=== PATIENT | female | born 1975 | race Caucasian/White ===

== ENCOUNTER → 2016-07-28 | Outpatient (CLI) | payer OTHER | LOC: WI 08:34 | PROVIDERS: ATTEND Nurse Practitioner Primary Care | DX: N63 Unspecified lump in breast (principal); N64.4 Mastodynia | CPT/HCPCS: 76642; G0279; G0204; 77062; 77066 ==

== ENCOUNTER → 2016-07-28 | Outpatient (CLI) | payer OTHER ==
[2016-08-01 05:39] LABS: QUANTIFERON TB NIL VALUE 0.05 IU/mL (.)
== END ==
LOC: RAD 10:53
PROVIDERS: ATTEND Nurse Practitioner Primary Care
DX: R76.11 Nonspecific reaction to tuberculin skin test without active tuberculosis (principal); Z20.1 Contact with and (suspected) exposure to tuberculosis
CPT/HCPCS: 36415; 71020; 86480

== ENCOUNTER → 2017-06-07 | Outpatient (CLI) | payer BC, OTHER ==
--- NOTE | 2017-06-07 17:45 | ST Modified Barium Swallow ---
Recommendation - Recommendations Recommendations: Functional swallow skills seen, no further intervention indicated. Medical Diagnoses - Medical Diagnoses Medical Diagnosis Description & ICD-10 Code(s): dysphagia R13.10 Other Medical Diagnoses/Co-Morbidities: Patient reports enlarged thyroid ST Modified Barium Swallow - General Date: 06/07/17 Referring Physician: Jo-Ann Angeles CNP Risks/Precautions: None - History History obtained from: Patient -: Medical - Patient states she notices globus sensation with foods, occasional coughing with liquids for approximately 1 year. States that recent ultrasound did reveal enlargment of thyroid. Also reports multiple jaw surgeries, but with no impact on swallowing. Medications: patient unable to give complete medication list Allergies: seafood - Functional Status Prior Functional Status: INDEPENDENT: feeding - independent - Subjective Patient/caregiver goal(s): r/o struct. abnormality Cognitive-Linguistic Function: WNL Speech Intelligibility: WNL Current Nutritional Means: PO Current PO diet: Regular Current symptoms: c/o Globus sensation Pain: Patient reports, 0/5 - Objective Assessment: Upright, Left Lateral - Food Trials Used Food trials used: Thin liquids, Pureed, Regular The patient: Was Able to Self Feed - Oral-Motor Skills Dentition: Full Laryngeal Function: Volitional Cough, Volitional Swallow - Assessment Oral prep: Normal Labial closure: Adequate Leakage: None Mastication: Adequate Lingual Movement: Normal Oral stage: Normal for this Procedure - Pharyngeal Stage Decreased laryngeal elevation: No Reduced Velopharyngeal Closure: no Reduced pressure generation: No reduced tongue-based retraction: No Pre-swallow pooling in valleculae: None Pre-Swallow pooling in pyriforms: None Reduced Thyro-Hyoid approximation: No Reduced epiglottic excursion: No Reduced pharyngeal peristalsis/contraction: No Post-swallow residulas vallecular: Mild - on pudding trial only Post-Swallow residuals in pyriforms: None - Fall Risk Assessment Medications/Conditions that increase fall risks include: Antidepressants, sedatives, anti-arrhythmic, diuretic, benzodiazipenes, neuroleptics. BP regulation problems, cardiac problems, balance or gait deficits, neurological problems. Is patient considered at risk for falls: no Fall Risk Actions Taken: No action needed - Behavioral Observations During evaluation process patient: was pleasant, was cooperative, able to answer questions - Treatment / Educational Needs: Treatment/Education Needs: Treatment consisted of patient education on the role of the Speech Pathologist. Patient's plan of care and golas were communicated as well as scheduling and attendance policies. Recommendations for initial home program were shared. Patient demonstrated understanding and verbalized agreement. - Impression/Summary Laryngeal Penetration: No Tracheal Aspiration: no Patient presents with: Normal swallow at eval Risk of Aspiration: Minimal Risk of nutritional compromise: None - Recommendations Solid diet recommendations: Regular Liquid Diet Modification: Thin Dysphagia therapy with SENIOR CARE SPECIALIST: no Recommended techniques: Fully Upright During Meal, Small Bites and Sips - Plan of Care Patient to follow-up with referring physician: Yes Strategies to optimize patient understanding include:: ongoing assessment of educational needs, implementation of educational strategies, and re-education. - - -: Thank you for the opportunity to work with this patient and his/her family. Should you have any questions about this patient's plan or progress, I can be reached at [phone]. Charge G Code? - - -: No
--- NOTE | 2017-06-08 17:40 | RADIOLOGY REPORT (SQ) ---
EXAM DESCRIPTION: KHOIIE SWALLOW COMPLETED DATE/TIME: 06/07/2017 8:29 am REASON FOR STUDY: DYSPHAGIA R10.13 EPIGASTRIC PAIN COMPARISON: None. TECHNIQUE: Videofluoroscopic swallowing examination was performed in conjunction with speech patholo gy. Videofluoroscopic imaging was obtained and reviewed and these are the findings: RADIATION DOSE: Fluoro time 1.31 minutes 1 images saved to PACS. LIMITATIONS: None FINDINGS: The patient was brought into the fluoro room and placed upright on a modified barium swall ow chair. The patient was then given multiple consistencies mixed with barium to swallow under live fluoroscopic video guidance. According to the Speech Pathologist there was no penetration or aspirat ion. Please refer to the speech pathology report for further details. IMPRESSION: NO EVIDENCE OF PENETRATION OR ASPIRATIONPLEASE SEE SPEECH PATHOLOGIST REPORT FOR OTHER F INDINGS AND RECOMMENDATIONS. COMMENT: None Quality ID [id number]: Final reports for procedures using fluoroscopy that document radiation exposure curtis cinthya, or exposure time and number of fluorographic images (if radiation exposure indices are not avail able) TECHNICAL DOCUMENTATION: JOB ID: [id number]- All Rights Reserved
== END ==
LOC: RAD 08:19
PROVIDERS: ATTEND Nurse Practitioner Primary Care
DX: R13.10 Dysphagia, unspecified (principal)
CPT/HCPCS: 74230

== ENCOUNTER → 2017-09-10 | Outpatient (CLI) | payer BC, OTHER ==
[2017-09-10 19:09] LABS: FREE T3 3.81 pg/mL (2.77-5.27); FREE T4 (FREE THYROXINE) 0.71 ng/dL (0.78-2.19)
[2017-09-10 19:22] LABS: THYROID STIMULATING HORMONE 0.81 uIU/mL (0.47-4.68)
[2017-09-12 08:50] LABS: THYROID PEROXIDASE (TPO) AB 15 IU/mL (0-34)
[2017-09-12 13:46] LABS: THYROGLOBULIN AB <1.0 IU/mL (0.0-0.9)
== END ==
LOC: OD 17:36
PROVIDERS: ATTEND Surgery
DX: E04.2 Nontoxic multinodular goiter (principal)
CPT/HCPCS: 36415; 84439; 84443; 84481; 86376; 86800

== ENCOUNTER 2018-05-23 15:08 | Emergency (ER) | payer BC, OTHER ==
--- NOTE | 2018-05-23 16:18 | ER Document Report ---
ED GI/ - General Chief Complaint: Rib Pain Stated Complaint: RIB PAIN Time Seen by Provider: 05/23/18 16:01 Mode of Arrival: Ambulatory Information source: Patient Notes: 42-year-old female presents to ED for complaint of left rib abdomen and flank pain since Sunday. She states she was nauseated and vomiting this morning but has not vomited this afternoon. She states she was also seen and treated for bronchitis just before Thanks[place] with antibiotics and has been fine until Sunday. Patient has a history of colon cancer with a hemicolectomy 8 years ago. She states she has been getting her colonoscopies yearly and her last one was a year ago and told that she did not need another one until next year. Patient is also had a history of gallbladder removal of appendectomy and a hysterectomy. She has a history of endometriosis with a tummy tuck. She is also had her tonsils out and her wisdom teeth. She does have a history of MRSA. Patient is alert and oriented respirations regular and unlabored speaking in full sentences is very guarding to the left chest abdomen flank area. Denies any history of kidney stones. TRAVEL OUTSIDE OF THE [place] IN LAST 30 DAYS: No - HPI Patient complains to provider of: Abdominal pain, Flank pain, Other - Abdomen flank and rib pain on the left Onset: Other Timing/Duration: Intermittent Quality of pain: Sharp Severity at maximum: Moderate Severity in ED: Moderate Pain Level: 4 Location: LUQ, Left flank, Other - left back andf ribs Vaginal bleeding (Compared to normal period): None Associated symptoms: Radiates to back - left ribs upper abdomen Exacerbated by: Denies Relieved by: Denies Similar symptoms previously: Yes Recently seen / treated by doctor: No - Related Data Allergies/Adverse Reactions: latex [Latex] Allergy (Severe, Verified 05/23/18 15:09) instant yeast infection(w/vag exam),red & raw skin (on hands morphine [Morphine] Adverse Reaction (Severe, Verified 05/23/18 15:09) Vomiting seafood Allergy (Intermediate, Uncoded 05/23/18 15:09) N&V, diarrhea, hives (Betadine ok) tylenol #3 Adverse Reaction (Severe, Uncoded 05/23/18 15:09) VOMITING Past Medical History - General Information source: Patient - Social History Smoking Status: Current Every Day Smoker Cigarette use (# per day): Yes - ppd Smoking Education Provided: Yes - 4 min Frequency of alcohol use: Rare Drug Abuse: None Occupation: front office Lives with: Family Family History: Reviewed & Not Pertinent Patient has suicidal ideation: No Patient has homicidal ideation: No - Past Medical History Cardiac Medical History: Reports: None Pulmonary Medical History: Reports: Hx Bronchitis EENT Medical History: Reports: None Neurological Medical History: Reports: None Endocrine Medical History: Reports: None Renal/ Medical History: Reports: Other - endometriosis Malignancy Medical History: Reports: Hx Colorectal Cancer GI Medical History: Reports: Hx Colonoscopy, Hx Endoscopy Musculoskeletal Medical History: Reports Hx Musculoskeletal Trauma Skin Medical History: Reports Hx MRSA Psychiatric Medical History: Reports: None Traumatic Medical History: Reports: Hx Fractures - fracture Infectious Medical History: Reports: None Past Surgical History: Reports: Hx Abdominal Surgery - tummy tuck, Hx Appendectomy, Hx Bowel Surgery, Hx Cholecystectomy, Hx Hysterectomy, Hx Oral Surgery, Hx Tonsillectomy - Immunizations Hx Diphtheria, Pertussis, Tetanus Vaccination: Yes Review of Systems - Review of Systems Constitutional: No symptoms reported EENT: No symptoms reported Cardiovascular: Other - left ribs Respiratory: Hurts to breathe Gastrointestinal: Abdominal pain - left upper abdomen Genitourinary: Flank pain - left flank Female Genitourinary: No symptoms reported Musculoskeletal: No symptoms reported Skin: No symptoms reported Hematologic/Lymphatic: No symptoms reported Neurological/Psychological: No symptoms reported -: Yes All other systems reviewed and negative Physical Exam - Vital signs Vitals: Temp Pulse Resp BP Pulse Ox 98.2 F 98 14 105/67 97 05/23/18 15:09 05/23/18 15:09 05/23/18 15:09 05/23/18 15:09 05/23/18 15:09 Interpretation: Normal - General General appearance: Appears well, Alert - HEENT Head: Normocephalic, Atraumatic Eyes: Normal Pupils: PERRL - Respiratory Respiratory status: No respiratory distress Chest status: Pain on movement, Pain with deep breathing, Other - left ribs Breath sounds: Normal Chest palpation: Normal - Cardiovascular Rhythm: Regular Heart sounds: Normal auscultation Murmur: No - Abdominal Inspection: Normal Distension: No distension Bowel sounds: Normal Tenderness: Tender - left upper abdomen Organomegaly: No organomegaly - Back Back: Normal, Tender - left upper back - Extremities General upper extremity: Normal inspection, Nontender, Normal color, Normal ROM , Normal temperature General lower extremity: Normal inspection, Nontender, Normal color, Normal ROM , Normal temperature, Normal weight bearing. No: Shannon's sign - Neurological Neuro grossly intact: Yes Cognition: Normal Orientation: AAOx4 [place] Coma Scale Eye Opening: Spontaneous [place] Coma Scale Verbal: Oriented Jason Coma Scale Motor: Obeys Commands Jason Coma Scale Total: 15 Speech: Normal Motor strength normal: LUE, RUE, LLE, RLE Sensory: Normal - Psychological Associated symptoms: Normal affect, Normal mood - Skin Skin Temperature: Warm Skin Moisture: Dry Skin Color: Normal Course - Re-evaluation Re-evalutation: 05/24/18 01:35 4 patient was discharged reviewed all labs and CTs with . Written reports of labs and CTs given the patient to follow-up with her primary doctor. There was no acute findings on the CT or labs. Patient was discharged home to follow-up with her primary doctor. - Vital Signs Vital signs: Temp Pulse Resp BP Pulse Ox 98.1 F 78 16 113/55 L 97 05/23/18 20:16 05/23/18 20:16 05/23/18 20:16 05/23/18 20:16 05/23/18 20:16 - Laboratory Result Diagrams: 05/23/18 16:30 05/23/18 16:30 Laboratory results interpreted by me: 05/23/18 05/23/18 05/23/18 16:30 16:30 16:47 Hgb 16.0 H Glucose 71 L Urine Ketones TRACE H Urine Blood SMALL H Urine Urobilinogen 2.0 H Urine Ascorbic Acid 20 H - Diagnostic Test Radiology reviewed: Image reviewed, Reports reviewed Discharge - Discharge Clinical Impression: Left flank pain Condition: Stable Disposition: HOME, SELF-CARE Instructions: Family Physicians / Practices Additional Instructions: Flank Pain We weren't able to prove an exact cause for your flank pain. Pain in the flank can be caused by a muscle strain or spasm. Sometimes a kidney stone causes pain, but can't be found on our tests. Infection in the kidney should be evident on a urine test. Early shingles can occasionally cause flank pain, without the rash that proves the diagnosis. On rare occasions, disease of the pancreas, aorta, spleen, or colon can create pain in the flank. At this time, there's no evidence of a dangerous condition, and it seems safe for you to be at home. If the pain goes away and does not come back, no further testing will be needed. If pain persists, or becomes more severe, we may need to repeat some tests or order additional new testing. Blood in the urine, urgency to urinate frequently, and pain that radiates to the groin can indicate a kidney stone. Fever may mean that the pain is due to infection, either of the kidney or the colon (diverticulitis). If your pain is early shingles, you should develop an eruption of blisters in the painful area within a few days. Call the doctor or return if you have pain that is spreading or becoming more severe, pain that does not resolve with time, fever, or any other new symptoms. You were seen today for left flank/ribs/ left abdominal pain. I have completed blood work urine CT of the abdomen pelvis and chest. There are no acute findings on any of this workup. I have sent copies of your labs and CAT scans home with you. Due to your history we would do in the CAT scans and blood work to ensure this was musculoskeletal. Toradol Injection You have been given an injection of ketorolac tromethamine (Toradol). This is an excellent, safe drug for pain control. It also has potent antiinflammatory action. You should have significant pain relief within about one hour. Toradol is not addicting and is non-sedating. It does not interfere with driving or work. Call or return if you develop itching, hives, shortness of breath, or rash. Muscle Relaxers Muscle relaxing medications are usually prescribed for acute muscle spasm or injury to the neck and back. They are often combined with antiinflammatory pain medication for increased relief. You may stop the muscle relaxer when the pain and stiffness have improved. Start the medication again if spasms recur. Muscle relaxers may cause drowsiness, especially with the first dose. Do not operate machinery or drive while under the effects of the medication. Most muscle relaxers last up to 24 hours. Do not combine the medication with alcohol. FOLLOW-UP CARE: If you have been referred to a physician for follow-up care, call the physician s office for an appointment as you were instructed or within the next two days. If you experience worsening or a significant change in your symptoms, notify the physician immediately or return to the Emergency Department at any time for re-evaluation. Prescriptions: Methocarbamol [Robaxin 500 mg Tablet] 500 mg PO BID PRN #14 tablet PRN Reason: For Pain Scale 3-4 Forms: Smoking Cessation Education Referrals: CHEO HERNANDEZ MD [ACTIVE STAFF] - Follow up as needed
[2018-05-23] MEDS ORDERED: RINGERS SOLUTION,LACTATED 1,000 ML IV ONE (16:19)
[2018-05-23] MEDS ORDERED: NORMAL SALINE 1000 ML 1,000 ML IV ONE (16:19)
[2018-05-23] MEDS ORDERED: KETOROLAC TROMETHAMINE INJ/PF 30 MG/1 ML SDV IV ONE (16:20)
[2018-05-23 16:56] LABS: ABSOLUTE BASOPHILS # (AUTO) 0.1 10^3/uL (0.0-0.2); ABSOLUTE EOSINOPHILS # (AUTO) 0.2 10^3/uL (0.0-0.6); ABSOLUTE LYMPHOCYTES (AUTO) 2.7 10^3/uL (0.5-4.7); ABSOLUTE MONOCYTES (AUTO) 0.6 10^3/uL (0.1-1.4); ABSOLUTE NEUT (AUTO) 6.7 10^3/uL (1.7-8.2); BASOPHILS % (AUTO) 1.2 % (0-2); EOSINOPHILS % (AUTO) 1.8 % (0-6); HEMATOCRIT 45.6 % (36.0-47.0); LYMPHOCYTES % (AUTO) 25.7 % (13-45); MEAN CORPUSCULAR HEMOGLOBIN 32.5 pg (27.0-33.4); MEAN CORPUSCULAR HGB CONC 35.1 g/dL (32.0-36.0); MEAN CORPUSCULAR VOLUME 92 fl (80-97); PLATELET COUNT 296 10^3/uL (150-450); RED BLOOD COUNT 4.94 10^6/uL (3.72-5.28); RED CELL DISTRIBUTION WIDTH 12.7 % (11.5-14.0); SEGMENTED NEUTROPHILS % (AUTO) 65.3 % (42-78); TOTAL CELLS COUNTED % (AUTO) 100 %; WHITE BLOOD COUNT 10.3 10^3/uL (4.0-10.5)
[2018-05-23 17:08] LABS: ALANINE AMINOTRANSFERASE 22 U/L (9-52); ALBUMIN 4.4 g/dL (3.5-5.0); ALKALINE PHOSPHATASE 60 U/L (38-126); ANION GAP 10 (5-19); ASPARTATE AMINO TRANSFERASE 19 U/L (14-36); BILIRUBIN,DIRECT 0.3 mg/dL (0.0-0.4); BILIRUBIN,TOTAL 0.4 mg/dL (0.2-1.3); BLOOD UREA NITROGEN 10 mg/dL (7-20); CARBON DIOXIDE 29 mmol/L (22-30); CHLORIDE 104 mmol/L (98-107); GLUCOSE 71 mg/dL (75-110); POTASSIUM 3.7 mmol/L (3.6-5.0); SODIUM 143.3 mmol/L (137-145)
[2018-05-23 17:08] LABS: APPEARANCE,URINE SLIGHTLY-CLOUDY; BILIRUBIN,URINE NEGATIVE (NEGATIVE); COLOR,URINE YELLOW; GLUCOSE, URINE NEGATIVE (NEGATIVE); KETONES,URINE TRACE mg/dL (NEGATIVE); LEUKOCYTE ESTERASE,URINE NEGATIVE (NEGATIVE); NITRITE,URINE NEGATIVE (NEGATIVE); PROTEIN,URINE NEGATIVE (NEGATIVE)
--- NOTE | 2018-05-23 19:36 | RADIOLOGY REPORT (SQ) ---
EXAM DESCRIPTION: CT CHEST WITH COMPLETED DATE/TIME: 05/23/2018 7:19 pm REASON FOR STUDY: left flank/rib and abdominal pain COMPARISON: None. TECHNIQUE: CT scan of the chest performed using helical scanning technique with dynamic intravenous contrast injection. Images reviewed with lung, soft tissue and bone windows. Reconstructed coronal and sagittal MPR and MIP images reviewed. All images stored on PACS. All CT scanners at this facility use dose modulation, iterative reconstruction, and/or weight based d osing when appropriate to reduce radiation dose to as low as reasonably achievable (ALARA). [facility]: Dose Right [facility]: CareDose [facility]: Dose Right [facility]: Teradose 4D [facility]: Embrace CONTRAST TYPE AND DOSE: 95 mL Omnipaque 350- low osmolar. RENAL FUNCTION: None required. The patient is less than 50 years old. RADIATION DOSE: CT Rad equipment meets quality standard of care and radiation dose reduction techniq ues were employed. CTDIvol: 7.6 - 12.1 mGy. DLP: 1643 mGy-cm. . LIMITATIONS: None. FINDINGS: LUNGS AND PLEURA: No opacities, nodules, masses. No pneumothorax. No effusions. HILAR AND MEDIASTINAL STRUCTURES: No identified masses or abnormal nodes. HEART AND VASCULAR STRUCTURES: No aneurysm or dissection. No central pulmonary emboli. No pericardi al effusion. HARDWARE: None in the chest. UPPER ABDOMEN: No significant findings. Limited exam. THYROID AND OTHER SOFT TISSUES: No masses. No adenopathy. BONES: No significant finding. OTHER: No other significant finding. IMPRESSION: NORMAL CT OF THE CHEST WITH IV CONTRAST. TECHNICAL DOCUMENTATION: JOB ID: [id number] Quality ID # [id number]: Final reports with documentation of one or more dose reduction techniques (e.g., Au tomated exposure control, adjustment of the mA and/or kV according to patient size, use of iterative reconstruction technique) 2010 [email or web address]- All Rights Reserved Reading location - IP/workstation name: [email or web address]
--- NOTE | 2018-05-23 19:43 | RADIOLOGY REPORT (SQ) ---
EXAM DESCRIPTION: CT ABD/PELVIS WITH IV ORAL COMPLETED DATE/TIME: 05/23/2018 7:19 pm REASON FOR STUDY: left flank/rib and abdominal pain COMPARISON: 02/03/2018 TECHNIQUE: CT scan of the abdomen and pelvis performed using helical scanning technique with dynamic intravenous contrast injection. Oral contrast. Images reviewed with lung, soft tissue, and bone win dows. Reconstructed coronal and sagittal MPR images reviewed. Delayed images for evaluation of the ur inary system also acquired. All images stored on PACS. All CT scanners at this facility use dose modulation, iterative reconstruction, and/or weight based d osing when appropriate to reduce radiation dose to as low as reasonably achievable (ALARA). [facility]: Dose Right [facility]: CareDose [facility]: Dose Right [facility]: Teradose 4D [facility]: [email or web address] CONTRAST TYPE AND DOSE: contrast/concentration: Isovue 350.00 mg/ml; Total Contrast Delivered: 95.0 ml; Total Saline Delivered: 71.0 ml RENAL FUNCTION: None required. The patient is less than 50 years old. RADIATION DOSE: . LIMITATIONS: None. FINDINGS: LOWER CHEST: No significant findings. No nodules or infiltrates. LIVER: There is a small low-density lesion right lobe of the liver. This may represent a small heman gioma. This is stable. SPLEEN: Normal size. No focal lesions. PANCREAS: No masses. No significant calcifications. No adjacent inflammation or peripancreatic fluid collections. Pancreatic duct not dilated. GALLBLADDER: Surgically absent. ADRENAL GLANDS: No significant masses or asymmetry. RIGHT KIDNEY AND URETER: No solid masses. No significant calcifications. No hydronephrosis or hyd roureter. LEFT KIDNEY AND URETER: No solid masses. No significant calcifications. No hydronephrosis or hydr oureter. AORTA AND VESSELS: No aneurysm. No dissection. Renal arteries, SMA, celiac without stenosis. RETROPERITONEUM: No retroperitoneal adenopathy, hemorrhage or masses. BOWEL AND PERITONEAL CAVITY: No masses or inflammatory changes. No free fluid or peritoneal masses. APPENDIX: Surgically absent. PELVIS: 22 mm left adnexal cyst. ABDOMINAL WALL: No masses. No hernias. BONES: No significant or acute findings. OTHER: No other significant finding. IMPRESSION: 1. Stable small low-density lesion in the right lobe of the liver, likely hemangioma. 2. No acute findings in the abdomen or pelvis. 3. Small left adnexal cyst, almost certainly benign. No follow-up is required for this. TECHNICAL DOCUMENTATION: JOB ID: [id number] Quality ID # [id number]: Final reports with documentation of one or more dose reduction techniques (e.g., Au tomated exposure control, adjustment of the mA and/or kV according to patient size, use of iterative reconstruction technique) 2010 [email or web address]- All Rights Reserved Reading location - IP/workstation name: [email or web address]
[2018-05-23 20:19] VITALS: BP 113/55
[2018-05-23] MEDS ORDERED: METHOCARBAMOL 500 MG TABLET PO ONE (20:30)
== END 2018-05-23 20:35 | disposition home or self-care (01) ==
LOC: ER 15:08
DX: R07.81 Pleurodynia (principal); R10.9 Unspecified abdominal pain; R11.2 Nausea with vomiting, unspecified; F17.210 Nicotine dependence, cigarettes, uncomplicated; Z86.14 Personal history of Methicillin resistant Staphylococcus aureus infection; Z90.49 Acquired absence of other specified parts of digestive tract; Z90.710 Acquired absence of both cervix and uterus; Z91.040 Latex allergy status; Z88.6 Allergy status to analgesic agent; Z91.013 Allergy to seafood
CPT/HCPCS: 99406; 99284; 96361; 96374; 36415; 85025; 80053; 81001; 71260; 74177; J1885; J7030; J7120

== ENCOUNTER 2018-05-24 12:41 | Emergency (ER) | payer BC, OTHER ==
--- NOTE | 2018-05-24 13:56 | ER Document Report ---
ED General - General Mode of Arrival: Ambulatory Information source: Patient TRAVEL OUTSIDE OF THE U.[place]. IN LAST 30 DAYS: No <MARCO FRANCO - Last Filed: 05/24/18 14:07> <BILL NUÑEZ - Last Filed: 05/24/18 14:58> - General Chief Complaint: Chest Wall Pain Stated Complaint: FLANK PAIN Time Seen by Provider: 05/24/18 13:10 Notes: Patient is a 42 year old female presenting to the emergency department complaining of left sided rib pain onset a few days ago. Patient states she presented to the emergency department yesterday complaining of a similar pain and had a unremarkable CT scan and xray of the chest, abdomen and pelvis performed. Patient states she went to her PCP this morning for follow up and had another xray performed which showed "free air below the diaphragm on the left" and that she needed to report back to the emergency department. Patient states the pain has worsened today and states the pain is exacerbated with deep breathing and movement. Patient states that she has been coughing copiously recently and further states she was recently diagnosed with bronchitis approximately 3 weeks ago. Patient states she finished the medications that was prescribed to her. (MARCO FRANCO) I did call the radiologist, Dr. Santiago to discuss the films that were done in his office. He stated that she had multiple small bowel air-fluid levels noted. She had what appeared to be air under the left diaphragm, but reports that could have been displaced: Given the appearance of free air. He was concerned because of her left-sided pleuritic chest pain. The patient reports the general area of her pain which includes the inferior anterolateral and lateral ribs and flank on the left is all very tender to palpate, and hurts to breathe, trunk twist and bend. (BILL NUÑEZ) - Related Data Allergies/Adverse Reactions: latex [Latex] Allergy (Severe, Verified 05/24/18 12:43) instant yeast infection(w/vag exam),red & raw skin (on hands morphine [Morphine] Adverse Reaction (Severe, Verified 05/24/18 12:43) Vomiting seafood Allergy (Intermediate, Uncoded 05/24/18 12:43) N&V, diarrhea, hives (Betadine ok) tylenol #3 Adverse Reaction (Severe, Uncoded 05/24/18 12:43) VOMITING Past Medical History - General Information source: Patient - Social History Smoking Status: Current Every Day Smoker Cigarette use (# per day): Yes - 1 PPD Chew tobacco use (# tins/day): No Frequency of alcohol use: None Family History: Reviewed & Not Pertinent Patient has suicidal ideation: No Patient has homicidal ideation: No - Past Medical History Cardiac Medical History: Pulmonary Medical History: Reports: Hx Bronchitis Malignancy Medical History: Reports: Hx Colorectal Cancer GI Medical History: Reports: Hx Colonoscopy, Hx Endoscopy Musculoskeletal Medical History: Reports Hx Musculoskeletal Trauma Skin Medical History: Reports Hx MRSA Traumatic Medical History: Reports: Hx Fractures - fracture Infectious Medical History: Denies: Hx Hepatitis Past Surgical History: Reports: Hx Abdominal Surgery - tummy tuck, Hx Appendectomy, Hx Bowel Surgery, Hx Cholecystectomy, Hx Hysterectomy, Hx Oral Surgery, Hx Tonsillectomy. Denies: Hx Mastectomy, Hx Open Heart Surgery, Hx Pacemaker - Immunizations Hx Diphtheria, Pertussis, Tetanus Vaccination: Yes <MARCO FRANCO - Last Filed: 05/24/18 14:07> Review of Systems - Review of Systems Constitutional: No symptoms reported EENT: No symptoms reported Cardiovascular: No symptoms reported Respiratory: See HPI, Cough Gastrointestinal: No symptoms reported Genitourinary: No symptoms reported Female Genitourinary: No symptoms reported Musculoskeletal: See HPI Skin: No symptoms reported Hematologic/Lymphatic: No symptoms reported Neurological/Psychological: No symptoms reported -: Yes All other systems reviewed and negative <MARCO FRANCO - Last Filed: 05/24/18 14:07> Physical Exam <MARCO FRANCO - Last Filed: 05/24/18 14:07> <BILL NUÑEZ - Last Filed: 05/24/18 14:58> - Vital signs Vitals: Temp Pulse Resp BP Pulse Ox 97.9 F 82 18 123/65 98 05/24/18 12:45 05/24/18 12:45 05/24/18 12:45 05/24/18 12:45 05/24/18 12:45 - Notes Notes: GENERAL: Alert, interacts well. No acute distress. HEAD: Normocephalic, atraumatic. EYES: Pupils equal, round, and reactive to light. Extraocular movements intact. ENT: Oral mucosa moist, tongue midline. NECK: Full range of motion. Supple. Trachea midline. LUNGS: Clear to auscultation bilaterally, no wheezes, rales, or rhonchi. No respiratory distress. Tender to palpation to the muscles of the left ribs which reproduces chief complaint. HEART: Regular rate and rhythm. No murmurs, gallops, or rubs. ABDOMEN: Soft, morbidly obese, non-tender. Non-distended. Bowel sounds present in all 4 quadrants. EXTREMITIES: Moves all 4 extremities spontaneously. NEUROLOGICAL: Alert and oriented x3. Normal speech. PSYCH: Normal affect, normal mood. SKIN: Warm, dry, normal turgor. No rashes or lesions noted. (MARCO FRANCO) Course - Diagnostic Test Radiology reviewed: Image reviewed, Reports reviewed - Acute abdominal series does show a few small bowel air-fluid levels. There is no free air under the diaphragm on either side. <BILL NUÑEZ - Last Filed: 05/24/18 14:58> - Vital Signs Vital signs: Temp Pulse Resp BP Pulse Ox 97.9 F 82 19 126/86 H 98 05/24/18 12:45 05/24/18 12:45 05/24/18 14:01 05/24/18 14:01 05/24/18 14:01 Discharge <MARCO FRANCO - Last Filed: 05/24/18 14:07> <BILL NUÑEZ - Last Filed: 05/24/18 14:58> - Discharge Clinical Impression: Rib pain, Flank pain Muscle strain of chest wall Qualifiers: Encounter type: initial encounter Qualified Code(s): S29.011A - Strain of muscle and tendon of front wall of thorax, initial encounter Condition: Stable Disposition: HOME, SELF-CARE Additional Instructions: Your x-rays done here today do not show any free air under the diaphragm. In discussion with the radiologist at [facility], he was unsure if it was free air or displaced large bowel gas causing the appearance of free air. The pain in your ribs and flank area seem to be related to all the coughing you had done recently causing a strain of your ribs. Try to limit activity as much as possible. Take medication as prescribed to suppress cough if needed or for pain control. Add Robitussin-DM to control cough if needed. Drink plenty of fluids. Continue the muscle relaxers prescribed last night, if they seem to be helping. Try to reduce smoking as much as possible. Follow-up with your primary care provider Sunday for recheck if not improving. RETURN TO THE EMERGENCY ROOM IF ANY NEW OR WORSENING SYMPTOMS. Prescriptions: Hydrocodone/Acetaminophen [[place] 5-325 mg Tablet] 1 tab PO ASDIR PRN #15 tablet PRN Reason: Scribe Attestation: 05/24/18 14:57 I personally performed the services described in the documentation, reviewed and edited the documentation which was dictated to the scribe in my presence, and it accurately records my words and actions. (BILL NUÑEZ) Scribe Documentation - Scribe Written by Omkar:: Omkar Mcconnell, 05/24/2018 13:59 acting as scribe for :: Joya <MARCO FRANCO - Last Filed: 05/24/18 14:07>
--- NOTE | 2018-05-24 14:33 | RADIOLOGY REPORT (SQ) ---
EXAM DESCRIPTION: ACUTE ABDOMEN SERIES COMPLETED DATE/TIME: 05/24/2018 2:23 pm REASON FOR STUDY: Possible free air on outside radiograph. COMPARISON: None. NUMBER OF VIEWS: Three views. TECHNIQUE: Frontal chest, supine abdomen and upright/decubitus abdomen radiographic images acquired. LIMITATIONS: None. FINDINGS: CHEST: Lungs clear of infiltrates. FREE AIR: None. No abnormal gas collections. BOWEL GAS PATTERN: There are infrequent air-fluid levels on the upright view. No evidence of mechani calvin obstruction. CALCIFICATIONS: No suspicious calcifications. HARDWARE: None in the abdomen. SOFT TISSUES: No gross mass or suggestion of organomegaly. BONES: No acute fracture. No worrisome bone lesions. OTHER: No other significant finding. IMPRESSION: No evidence of pneumoperitoneum. Nonobstructive gas pattern with scattered air-fluid le vels on the upright view. TECHNICAL DOCUMENTATION: JOB ID: [id number] [employer]- All Rights Reserved Reading location - IP/workstation name: [email or web address]
[2018-05-24 14:54] VITALS: BP 126/86
== END 2018-05-24 15:05 | disposition home or self-care (01) ==
LOC: ER 12:41
DX: S29.011A Strain of muscle and tendon of front wall of thorax, initial encounter (principal); R07.89 Other chest pain; R10.9 Unspecified abdominal pain; R07.81 Pleurodynia; X58.XXXA Exposure to other specified factors, initial encounter; F17.210 Nicotine dependence, cigarettes, uncomplicated
CPT/HCPCS: 74022; 99283

== ENCOUNTER 2020-01-28 05:33 | Observation (INO) | payer BC, OTHER ==
--- NOTE | 2020-01-23 09:46 | EKG REPORT ---
SEVERITY:- NORMAL ECG - SINUS RHYTHM : Confirmed by: Felice Piña MD 23-Jan-2020 09:45:48
[2020-01-23 10:13] LABS: HEMATOCRIT 44.9 % (36.0-47.0); HEMOGLOBIN 15.5 g/dL (12.0-15.5); MEAN CORPUSCULAR HEMOGLOBIN 31.4 pg (27.0-33.4); MEAN CORPUSCULAR HGB CONC 34.5 g/dL (32.0-36.0); MEAN CORPUSCULAR VOLUME 91 fl (80-97); PLATELET COUNT 248 10^3/uL (150-450); RED BLOOD COUNT 4.94 10^6/uL (3.72-5.28); RED CELL DISTRIBUTION WIDTH 12.8 % (11.5-14.0); WHITE BLOOD COUNT 6.5 10^3/uL (4.0-10.5)
[2020-01-23 10:52] LABS: ANION GAP 7 (5-19); BLOOD UREA NITROGEN 8 mg/dL (7-20); CALCIUM 9.9 mg/dL (8.4-10.2); CARBON DIOXIDE 26 mmol/L (22-30); CHLORIDE 106 mmol/L (98-107); GLUCOSE 93 mg/dL (75-110); POTASSIUM 4.5 mmol/L (3.6-5.0)
[~2020-01-28 05:33] MED LIST: CEFAZOLIN 1 GM/D5W RTU 1 GM/50 ML RTUPB IV PRN; LACTATED RINGERS 1000 ML IV PRN; LIDOCAINE 0.5% INJ-PF (5 MG/ML) 50 ML SDV SUBCUT PRN
[2020-01-28] MEDS ORDERED: CEFAZOLIN 1 GM/D5W RTU 1 GM/50 ML RTUPB IV ONE (05:36)
[2020-01-28] MEDS ORDERED: PROPOFOL INJ 200 MG/20 ML VIAL IV ONE (07:09)
[2020-01-28] MEDS ORDERED: LIDOCAINE 2% INJ-PF (20 MG/ML) 10 ML AMPUL ONE (07:09)
[2020-01-28] MEDS ORDERED: FENTANYL CITRATE INJ/PF 100 MCG/2 ML AMPUL ONE ×2 (07:09→09:09)
[2020-01-28] MEDS ORDERED: HYDROMORPHONE HCL INJ/PF 2 MG/ML AMPULE ONE (07:09)
[2020-01-28] MEDS ORDERED: MIDAZOLAM 2 MG/2 ML INJ ONE (07:09)
[2020-01-28] MEDS ORDERED: ONDANSETRON HCL INJ/PF 4 MG/2 ML SDV ONE ×2 (07:09→15:31)
[2020-01-28] MEDS ORDERED: DEXAMETHASONE SOD PHOSPHATE INJ 4 MG/1 ML VIAL ONE (07:09)
[2020-01-28] MEDS ORDERED: MICROFIBRILLAR COLLAGEN 1 GM PACK ONE (07:14)
[2020-01-28] MEDS ORDERED: MEPERIDINE HCL/PF INJ 25 MG/1 ML DISP.SYRIN IV PRN ×2 (08:07→11:42)
[2020-01-28] MEDS ORDERED: OXYCODONE-ACETAMINOPHEN 5-325 MG TABLET PO PRN ×2 (08:07)
[2020-01-28] MEDS ORDERED: FENTANYL CITRATE INJ/PF 100 MCG/2 ML AMPUL IV PRN ×6 (08:07→11:42)
[2020-01-28] MEDS ORDERED: DIPHENHYDRAMINE HCL 50 MG/ML VIAL IV PRN ×2 (08:07→11:42)
[2020-01-28] MEDS ORDERED: PROMETHAZINE HCL INJ 25 MG/1 ML VIAL IV PRN ×4 (08:07→11:42)
[2020-01-28] MEDS ORDERED: DEXMEDETOMIDINE INJ 80 MCG/20 ML VIAL IV ONE (09:04)
[2020-01-28] MEDS ORDERED: HYDROMORPHONE HCL INJ/PF 2 MG/ML AMPULE IV PRN (11:07)
[2020-01-28] MEDS ORDERED: NORMAL SALINE 1000 ML 1,000 ML IV PRN (11:07)
[2020-01-28] MEDS ORDERED: SUGAMMADEX SODIUM 200 MG/2 ML SDV IV ONE (11:08)
--- NOTE | 2020-01-28 11:24 | Operative Report ---
Operative Report DATE OF SURGERY: 01/28/20 PREOPERATIVE DIAGNOSIS: 1. Multinodular goiter. 2. Smoker POSTOPERATIVE DIAGNOSIS: Same OPERATION: Total thyroidectomy with isthmusectomy SURGEON: CHEO JACOME SUPPLY PERSON: KRISTINA TOUSSAINT ANESTHESIA: GA TISSUE REMOVED OR ALTERED: Right and left thyroid lobes COMPLICATIONS: None ESTIMATED BLOOD LOSS: 100 cc INTRAOPERATIVE FINDINGS: See below PROCEDURE: Patient was seen in the preop holding area where the neck was marked for a planned transcervical incision. She was then taken to the main operating room and general anesthesia was induced. Her arms were tucked at her side, patient placed in the reverse Trendelenburg, with the neck extended. The neck and anterior chest wall prepped draped sterile fashion Surgical plan surgical timeout were conducted. A standard transcervical incision was made at the site of previous marking approximately 2 cm below the cricoid cartilage in the patient's [place] skin crease. Superior and inferior platysma flaps were raised. Strap muscles were divided in midline with electrocautery. We approached the right thyroid lobe first which was larger than the left by ultrasound. The strap muscles were elevated off of the anterior surface of the thyroid lobe. We approach the inferior pole initially which was ending down towards the clavicle. We elevated up manually, took down attachments between clips, and electrocautery. Superiorly the strap muscles were adhesed to the anterior and lateral surface of the upper pole. There was no evidence of pathologic involvement, but mild amount of edema and scarring. Once I was able to elevate the thyrohyoid muscle off the superior pole, we were able to take down the superior pole vessels. The vessels were taken right down on the gland at branching points. We mobilized the inferior pole completely, then divided the right lobe along the isthmus with clamps, and electrocautery. We worked in a circumferential fashion mobilizing the multinodular goiter away from surrounding tissue. The right recurrent laryngeal nerve was identified in its predictable location down deep towards the carotid sheath. It swept up medially in a traditional contour. The right inferior parathyroid gland was not definitively visualized however a pocket of fatty tissue inferior to the inferior pole, once mobilized, was left in situ, and felt to contain the inferior right parathyroid gland.. The right superior parathyroid gland was visualized in a pocket of fatty tissue and preserved. We continued to mobilize the posterior surface of the lobe off of the trachea, keeping the recurrent nerve in view continuously. Attachments to the ligament of Travis were rather tenacious and using a methodical right ankle and clip for hemostasis, we able to free the right lobe completely off of the trachea, with the recurrent nerve intact. The amount of residual thyroid tissue was a small, easily 3 to 4 mm nubbin. The specimen was removed from the patient, all clips removed, and sent to pathology where it was reviewed by Dr. Elizabeth who felt that it represented multinodular goiter, however a dominant nodule would require further examination. Hemostasis was satisfactory at this point. We now switched positions and completed the left lobectomy. The left lobe was elevated off of the trachea uneventfully. The inferior pole was elevated out of the lower neck without difficulty. The left recurrent laryngeal nerve was visualized in a symmetric fashion in the tracheoesophageal groove and preserved throughout the dissection. On the left side the left superior pole was mildly adhesed to the posterior surface of the strap muscles but came off without undue difficulty. Superior thyroid artery and vein were taken off of the gland at branch points. The superior pole came down nicely. The left superior parathyroid gland was visualized in the dissection. It was adhered to the lateral surface of the thyroid gland, some meticulous dissection facilitated its removal. It remained reasonably well vascularized and was left in situ. We continue to work in a circumferential fashion, getting the posterior attachments of the left lobe completely off of the trachea, again keeping the recurrent nerve in constant view. The left inferior parathyroid gland was felt to be in a small pocket of fatty tissue posterior to the undersurface of the left inferior pole. The nubbin of thyroid tissue left adjacent to the recurrent laryngeal nerve-left superior parathyroid gland was approximately 6 to 7 mm. It was not dissected out. The specimen, left lobe, removed from the patient, all clips removed and the specimen sent to pathology as left thyroid lobe. It too was examined by Dr. Elizabeth pathologist, who felt to represent a multinodular goiter. We now inspected both left and right sides of the neck and the operative field. Hemostasis was achieved on the right side with the addition of a piece of Gelfoam. Avitene slurry was placed on both sides of the neck. We did not feel a drain was indicated. Sponge and needle count was correct. Strap muscles closed in midline with a running 2-0 Vicryl suture, and platysma and dermis closed with multiple interrupted 3-0 Vicryl sutures. Skin approximated with skin glue. Patient tolerated the procedure well, extubated, taken recovery in stable condition. Summary: Both right and left lobes of the thyroid gland, including isthmus were removed operatively as described above. Residual thyroid tissue on right side, extremely small, less than 4 mm; on the left side, residual thyroid tissue left approximately 6mm. Both right and left recurrent laryngeal nerves were v isualized throughout their course from the lateral neck into their points of insertion into the larynx. Both superior right and left parathyroid glands visualized and preserved. Left and right inferior parathyroid glands not dissected out therefore not definitively visualized but their location inferred. MARLEN Martin, assisted with the entire operation providing critical tissue retraction, assistance with clip application, and deep tissue and superficial neck closure.
[2020-01-28] MEDS ORDERED: PROMETHAZINE HCL INJ 25 MG/1 ML VIAL ONE (11:39)
[2020-01-28] MEDS ORDERED: ACETAMINOPHEN 1,000 MG/100 ML RTUPB IV ONE (11:39)
[2020-01-28] MEDS: FENTANYL CITRATE INJ/PF 100 MCG/2 ML AMPUL ONE ×2 (11:42→11:47)
[2020-01-28] MEDS ORDERED: PHENYLEPHRINE HCL INJ/PF 10 MG/1 ML SDV ONE (15:31)
[2020-01-28] MEDS ORDERED: KETOROLAC TROMETHAMINE 60 MG/2 ML SDV ONE (15:31)
[2020-01-28] MEDS ORDERED: GLYCOPYRROLATE 1 MG/5 ML VIAL ONE (15:31)
[2020-01-28] MEDS ORDERED: NEOSTIGMINE METHYLSULFATE 10 MG/10 ML VIAL ONE (15:31)
[2020-01-28] MEDS ORDERED: KETOROLAC TROMETHAMINE INJ/PF 30 MG/1 ML SDV ONE (20:33)
[2020-01-28] MEDS ORDERED: TRAMADOL HCL 50 MG TABLET PO PRN (20:53)
[2020-01-28] MEDS ORDERED: KETOROLAC TROMETHAMINE INJ/PF 30 MG/1 ML SDV IV ONE (21:00)
[2020-01-28] MEDS ORDERED: CALCIUM GLUCONATE 1 GM/NS 50 ML RTU IV ONE (23:00)
--- NOTE | 2020-01-29 07:38 | PDOC DISCHARGE SUMMARY ---
General - Admit/Disc Date/PCP Admission Date/Primary Care Provider: MELITA MONTANO NP Discharge Date: 01/29/20 - Discharge Diagnosis Final Diagnosis: Multinodular goiter - Assessment Summary: Patient is a 44-year-old white female with symptomatic multinodular goiter. She is brought through ambulatory surgery for total thyroidectomy and isthmusectomy. The procedure was performed by Dr. Pulliam. She had no drain placed. Postoperatively she did well, had excellent vocal function. Her preoperative calcium was 9.9, postoperatively dropped to 8.4 and stated 8.4. She did receive 1 g of calcium gluconate on the night of surgery. She had no manifestations of hypocalcemia. The following morning she was doing well, had good vocal function, incision was healing satisfactorily, no hematoma of the neck. Pain was controlled. She was ambulating, and took clear liquids without difficulty. She was felt to be ready for discharge home. Final diagnosis: Multinodular goiter status post total thyroidectomy with isthmusectomy. Plan: Discharge home, shower; may take Motrin, or Toradol as prescribed by Dr. Pulliam. Patient will be started on 150 mcg of Synthroid daily, and prescription provided. She will also be given calcium gluconate 2 g p.o. daily prescription to take for 2 weeks. We will repeat her calcium level next week prior to her visit with Dr. Pulliam at [facility]. - Additional Information Resuscitation Status: Full Code Discharge Activity: Activity As Tolerated Referrals: CHEO PULLIAM MD [ACTIVE STAFF] - 02/06/20 8:00 am Home Medications: Phentermine HCl [Adipex-P] 37.5 mg PO DAILY 01/23/20 History of Present Illiness History of Present Illness: VISHNU STEWART is a 44 year old female Physical Exam Vital Signs: Temp Pulse Resp BP Pulse Ox 98.2 F 64 17 107/56 L 96 01/28/20 23:01 01/28/20 23:01 01/28/20 23:01 01/28/20 23:01 01/28/20 23:01 Intake & Output 01/28/20 01/29/20 01/30/20 06:59 06:59 06:59 Intake Total 0 2840 Output Total 125 Balance 0 2715 Weight 95 kg 97.6 kg Results Laboratory Results: WBC 6.5 10^3/uL (4.0-10.5) 01/23/20 09:20 RBC 4.94 10^6/uL (3.72-5.28) 01/23/20 09:20 Hgb 15.5 g/dL (12.0-15.5) 01/23/20 09:20 Hct 44.9 % (36.0-47.0) 01/23/20 09:20 MCV 91 fl (80-97) 01/23/20 09:20 MCH 31.4 pg (27.0-33.4) 01/23/20 09:20 MCHC 34.5 g/dL (32.0-36.0) 01/23/20 09:20 RDW 12.8 % (11.5-14.0) 01/23/20 09:20 Plt Count 248 10^3/uL (150-450) 01/23/20 09:20 Sodium 139.0 mmol/L (137-145) 01/23/20 09:20 Potassium 4.5 mmol/L (3.6-5.0) 01/23/20 09:20 Chloride 106 mmol/L (98-107) 01/23/20 09:20 Carbon Dioxide 26 mmol/L (22-30) 01/23/20 09:20 Anion Gap 7 (5-19) 01/23/20 09:20 BUN 8 mg/dL (7-20) 01/23/20 09:20 Creatinine 0.75 mg/dL (0.52-1.25) 01/23/20 09:20 Est GFR ( Amer) > 60 (>60) 01/23/20 09:20 Est GFR (MDRD) Non-Af > 60 (>60) 01/23/20 09:20 Glucose 93 mg/dL (75-110) 01/23/20 09:20 Calcium 8.4 mg/dL (8.4-10.2) 01/29/20 04:24 COVID-19 Source NASOPHARYNGEAL 01/23/20 09:15 COVID-19 (LIZETH) NOT DETECTED 01/23/20 09:15
[2020-01-29 08:04] VITALS: BP 99/51
[2020-01-29] MEDS ORDERED: LEVOTHYROXINE SODIUM 0.15 MG TABLET PO ONE (08:30)
== END 2020-01-29 10:13 | disposition home or self-care (01) ==
LOC: OROUT 05:33 → 4N 11:07 → OROUT 12:44 → 4N 12:44 → OROUT 01-29 10:13
PROVIDERS: ADMIT Surgery; ATTEND Surgery
DX: E04.2 Nontoxic multinodular goiter (principal); C73 Malignant neoplasm of thyroid gland; F17.210 Nicotine dependence, cigarettes, uncomplicated; Z85.038 Personal history of other malignant neoplasm of large intestine; Z03.818 Encounter for observation for suspected exposure to other biological agents ruled out
CPT/HCPCS: 00320; 36415; 80048; 82310; 85027; 87635; 88307; 93005; 93010; 94799; J0610; C9803; G0378; J0131; J0690; J1100; J1170; J1885; J2250; J2370; J2405; J2550; J2704; J2710; J3010; J3490

== ENCOUNTER → 2020-02-04 | Outpatient (CLI) | payer OTHER | LOC: OD 08:58 | PROVIDERS: ATTEND Surgery | DX: E89.0 Postprocedural hypothyroidism (principal) | CPT/HCPCS: 36415; 82310 ==

== ENCOUNTER → 2020-02-13 | Outpatient (CLI) | payer OTHER | LOC: OD 08:16 | PROVIDERS: ATTEND Surgery | DX: E89.0 Postprocedural hypothyroidism (principal); E06.3 Autoimmune thyroiditis | CPT/HCPCS: 36415; 82310 ==

== ENCOUNTER 2020-06-19 13:50 | Emergency (ER) | payer OTHER ==
--- NOTE | 2020-06-19 14:58 | ER Document Report ---
ED Medical Screen (RME) - General Chief Complaint: Foot Injury Stated Complaint: FOOT INJURY Time Seen by Provider: 06/19/20 14:52 Primary Care Provider: [facility] ([facility]) [Provider Group] - Follow up as needed Mode of Arrival: Ambulatory Information source: Patient Notes: Patient states 2 weeks ago she was wearing heeled shoes and rolled her ankle and fell. Patient complains of continued left lateral foot tenderness. Patient states that she scraped her right knee although she has not had any persistent knee pain. Patient denies any other problems. TRAVEL OUTSIDE OF THE [place] IN LAST 30 DAYS: No - HPI Onset: Other - 2 wk Onset/Duration: Persistent Quality of pain: Achy Exacerbated by: Movement, Walking Relieved by: Denies Similar symptoms previously: No Recently seen / treated by doctor: No - Related Data Allergies/Adverse Reactions: latex [Latex] Allergy (Severe, Verified 06/19/20 16:50) instant yeast infection(w/vag exam),red & raw skin (on hands morphine [Morphine] Adverse Reaction (Severe, Verified 06/19/20 16:50) Vomiting seafood Allergy (Intermediate, Uncoded 06/19/20 16:50) N&V, diarrhea, hives (Betadine ok) tylenol #3 Adverse Reaction (Severe, Uncoded 06/19/20 16:50) VOMITING Past Medical History - General Information source: Patient - Social History Cigarette use (# per day): Yes Frequency of alcohol use: None Drug Abuse: None Occupation: None Lives with: Family Family history: Reviewed & Not Pertinent - Past Medical History Cardiac Medical History: Denies: Hx Coronary Artery Disease, Hx Heart Attack, Hx Hypertension Pulmonary Medical History: Reports: Hx Bronchitis Denies: Hx Asthma, Hx COPD, Hx Pneumonia Neurological Medical History: Denies: Hx Cerebrovascular Accident, Hx Seizures Endocrine Medical History: Reports: Hx Hypothyroidism Renal/ Medical History: Denies: Hx Peritoneal Dialysis Malignancy Medical History: Reports: Hx Colorectal Cancer GI Medical History: Reports: Hx Colonoscopy, Hx Endoscopy. Denies: Hx Hepatitis, Hx Hiatal Hernia, Hx Ulcer Musculoskeltal Medical History: Denies Hx Arthritis, Reports Hx Musculoskeletal Trauma Skin Medical History: Reports Hx MRSA Psychiatric Medical History: Denies: Hx Depression Traumatic Medical History: Reports: Hx Fractures - fracture Infectious Medical History: Denies: Hx Hepatitis Past Surgical History: Reports: Hx Abdominal Surgery - tummy tuck, Hx Appendectomy, Hx Bowel Surgery, Hx Cholecystectomy, Hx Hysterectomy, Hx Oral Surgery, Hx Tonsillectomy. Denies: Hx Mastectomy, Hx Open Heart Surgery, Hx Pacemaker - Immunizations Hx Diphtheria, Pertussis, Tetanus Vaccination: Yes Review of Systems - Review of Systems Constitutional: No symptoms reported EENT: No symptoms reported Cardiovascular: No symptoms reported Respiratory: No symptoms reported Gastrointestinal: No symptoms reported Genitourinary: No symptoms reported Female Genitourinary: No symptoms reported Musculoskeletal: Joint pain - Left foot Skin: No symptoms reported Hematologic/Lymphatic: No symptoms reported Neurological/Psychological: No symptoms reported Physical Exam - Vital signs Vitals: Temp Pulse Resp BP Pulse Ox 98.3 F 84 18 136/71 H 97 06/19/20 14:17 06/19/20 14:17 06/19/20 14:17 06/19/20 14:17 06/19/20 14:17 - General General appearance: Appears well, Alert In distress: None - HEENT Head: Normocephalic Eyes: Normal Nasal: Normal Mouth/Lips: Normal Mucous membranes: Normal - Respiratory Respiratory status: No respiratory distress - Cardiovascular Pulses: Normal: Dorsalis pedis - Back Back: Normal - Extremities General upper extremity: Normal inspection, Normal ROM Knee: Normal, Nontender Ankle: Normal, Nontender Foot: Tender - Left foot tenderness over lateral aspect of the foot over the proximal fifth metatarsal, Edema, Tender 5th metatarsal. No: Deformity, Nail injury, Unable to bear weight - Neurological Neuro grossly intact: Yes Cognition: Normal Orientation: AAOx4 Jason Coma Scale Eye Opening: Spontaneous [place] Coma Scale Verbal: Oriented Jason Coma Scale Motor: Obeys Commands Jason Coma Scale Total: 15 - Psychological Associated symptoms: Normal affect, Normal mood - Skin Skin Temperature: Warm Skin Moisture: Dry Skin Color: Normal Course - Re-evaluation Re-evalutation: 06/19/20 15:41 Patient without any acute fracture noted on x-ray imaging, will plan to immobilize foot and provide crutches and encourage outpatient follow-up with orthopedics for further evaluation at this time. - Vital Signs Vital signs: Temp Pulse Resp BP Pulse Ox 98.4 F 70 17 126/66 H 99 06/19/20 16:49 06/19/20 16:49 06/19/20 16:49 06/19/20 16:49 06/19/20 16:49 - Laboratory Results Critical Laboratory Results Reviewed: No Critical Results - Radiology Results Critical Radiology Results Reviewed: No Critical Results Procedures - Immobilization Left Foot Pre-Proc Neuro Vasc Exam: Normal Immobilizer type: Post-op shoe Performed by: PCT Post-Proc Neuro Vasc Exam: Normal Alignment checked and good: Yes Doctor's Discharge - Discharge Clinical Impression: Sprain of left foot Qualifiers: Encounter type: initial encounter Qualified Code(s): S93.602A - Unspecified sprain of left foot, initial encounter Condition: Stable Disposition: HOME, SELF-CARE Instructions: Karl Wrap ([facility]), Use of Crutches ([facility]), Post-Op Shoe ([facility]), Sprain ([facility]) Additional Instructions: Return immediately for any new or worsening symptoms Followup with your primary care provider, call tomorrow to make a followup appointment Follow-up with orthopedics for further evaluation, call Sunday for an appointment Weightbearing as tolerated Referrals: [facility] ([facility]) [Provider Group] - Follow up as needed
--- NOTE | 2020-06-19 15:33 | RADIOLOGY REPORT (SQ) ---
EXAM DESCRIPTION: FOOT LEFT COMPLETE IMAGES COMPLETED DATE/TIME: 06/19/2020 3:15 pm REASON FOR STUDY: rolled foot/fell, lat foot pain COMPARISON: None. NUMBER OF VIEWS: Three views. TECHNIQUE: AP, lateral and oblique radiographic images acquired of the left foot. LIMITATIONS: None. FINDINGS: MINERALIZATION: Normal. BONES: No acute fracture or dislocation. No worrisome bone lesions. JOINTS: No effusions. SOFT TISSUES: No soft tissue swelling. No foreign body. OTHER: No other significant finding. IMPRESSION: NEGATIVE STUDY OF THE LEFT FOOT. NO RADIOGRAPHIC EVIDENCE OF ACUTE INJURY. TECHNICAL DOCUMENTATION: JOB ID: [id number] 2010 [employer]- All Rights Reserved Reading location - IP/workstation name: [email or web address]
[2020-06-19 16:54] VITALS: BP 126/66
== END 2020-06-19 16:55 | disposition home or self-care (01) ==
LOC: ER 13:50
DX: S93.602A Unspecified sprain of left foot, initial encounter (principal); W19.XXXA Unspecified fall, initial encounter; Z72.0 Tobacco use; Z85.048 Personal history of other malignant neoplasm of rectum, rectosigmoid junction, and anus; Z91.040 Latex allergy status; Z91.013 Allergy to seafood
CPT/HCPCS: 99283

== ENCOUNTER → 2020-06-24 | Outpatient (CLI) | payer OTHER ==
--- NOTE | 2020-06-24 14:00 | WOMENS IMAGING REPORT ---
EXAM DESCRIPTION: 3D SCREENING MAMMO BILAT IMAGES COMPLETED DATE/TIME: 06/24/2020 1:13 pm REASON FOR STUDY: ROUTINE SCREENING MAMMOGRAM Z12.31 Z12.31 ENCNTR SCREEN MAMMOGRAM FOR MALIGNANT N EOPLASM OF NETTIE COMPARISON: Priors dating back to 2007 EXAM PARAMETERS: Views: Standard craniocaudal and mediolateral oblique views of each breast recorded using digital acquisition and breast tomosynthesis. Read with the assistance of CAD. .[facility] - [employer] P[employer]cer Machine Version 9.2 LIMITATIONS: None. FINDINGS: No suspicious masses, suspicious calcifications or architectural distortion. No areas of c oncern. IMPRESSION: NEGATIVE MAMMOGRAM. BIRADS 1. BREAST DENSITY: b. There are scattered areas of fibroglandular density. BIRAD: ASSESSMENT: 1 NEGATIVE RECOMMENDATION: ROUTINE SCREENING COMMENT: The patient has been notified of the results by letter per MQSA requirements. Additional no tification policies are in place for contacting patient with suspicious or incomplete findings. Quality ID #[id number]: The [employer] recommends an annual screening mammogram for women aged 40 years or over. This facility utilizes a reminder system to ensure that all patients receive reminder letters, and/or direct phone calls for appointments. This includes reminders for routine scr eening mammograms, diagnostic mammograms, or other Breast Imaging Interventions when appropriate. Th is patient will be placed in the appropriate reminder system. TECHNICAL DOCUMENTATION: FINDING NUMBER: (1) ASSESSMENT: (1) JOB ID: [id number] 2010 [employer]- All Rights Reserved Reading location - IP/workstation name: [email or web address]
== END ==
LOC: WI 13:00
PROVIDERS: ATTEND Nurse Practitioner Primary Care
DX: Z12.31 Encounter for screening mammogram for malignant neoplasm of breast (principal)
CPT/HCPCS: 77063; 77067